=== PATIENT | male | born 1960 | race African-American/Black ===

== ENCOUNTER 2019-05-17 12:47 | Emergency (ER) | payer OTHER, MEDICAID, SELFPAY ==
[2019-05-17 12:48] VITALS: BP 174/103; PULSE 106; RESP 16; TEMP 36.6; O2SAT 98; BMI 29.5
--- NOTE | 2019-05-17 13:00 | RAD_ITS ---
STUDY: X-RAY - RIGHT KNEE REASON FOR EXAM: Male, 59 years old. TECHNIQUE: 4 view(s) of the knee. COMPARISON: None. FINDINGS: Normal visualized distal femur. Normal visualized proximal tibia and fibula. Normal proximal tibiofibular articulation. Normal medial femorotibial compartment. Normal lateral femorotibial compartment. There is mild lateral subluxation of the patella. The soft tissue structures are unremarkable. There is mild effusion. RAD/Knee 4 or More Views IMPRESSION: Mild joint effusion with minimal lateral subluxation of the patella please correlate to findings clinically. Electronically Signed: Jose L Greer, at 13:47 EST Tel , Service support ,
--- NOTE | 2019-05-17 13:01 | ED.VIS.GEN ---
History of Present Illness Chief Complaint: Lower Extremity Injury Informant: Patient Onset: Today Context: Onset with activity, Sudden Onset Timing: Continuous Quality: Pain Location: Right knee Current Severity: Mild Maximum Severity: Moderate Worsened by: Weightbearing Relieved by: Rest Associated Symptoms: No other symptoms Narrative: Patient is a 59-year-old male presents with a work-related injury that occurred this morning. He states he was pushing and pulling and heavy piece of machinery. He developed severe right knee pain. He denies history of prior injury. He denies history of gout or pseudogout. He denies fever or chills. He denies paresthesia, anesthesia or motor weakness. There is no history of direct trauma to his knowledge. States the pain is gotten worse and recently presents Prior similar symptoms: No Recent Illness/Hospitalization: No - Past Medical History (1) History of hypertension Status: Acute (2) History of type 2 diabetes mellitus Status: Acute (3) History of COPD Status: Chronic Past Medical History - Allergies and Home Meds Allergies/Adverse Reactions: Allergies No Known Allergies Allergy (Verified 05/17/19 12:48) Primary Care Physician: Care Physician,No Primary [Primary Care Provider] - Prior records reviewed: Yes Surgical History: noncontributory, - - Surgery left knee Lives: Alone Smoking Status: Never smoker Drugs: None Review of Systems General: Denies: Chills, Fever, Sweats Musculoskeletal: Reports: Swelling, Extremity Pain. Denies: Myalgias, Arthralgias, Neck pain, Back pain Skin: Denies: Rash, Wounds Neurological: Denies: Weakness, Parasthesia, Numbness Hematologic: Denies: Easy bleeding Allergy: Denies: Uticaria, Swelling of the mouth Physical Exam Vital Signs/Narrative: Vital Signs Temp Pulse Resp BP Pulse Ox 05/17/19 12:48 97.9 F 106 H 16 174/103 H 98 Inital Vital Signs reviewed: Yes General: Well nourished, Well developed, No Acute Distress Head: Normocephalic, Atraumatic Eyes: Perrl, EOMI. Negative for: Pale conjunctiva, Scleral icterus ENT: Moist mucous membranes, No rhinorrhea Neck: Supple, Nontender, No lymphadenopathy, No JVD Cardiovascular: Regular rate, Regular rhythm, No murmurs Extremities: No edema, Tenderness - Tenderness palpation of the right knee., - - The right knee is swollen compared to left. There is an effusion. The patella is not ballotable. There is joint line tenderness. He is able to extend to 180 degrees and flex to approximately 90 degrees. There is no laxity with varus valgus stress testing. There is no laxity with Flor's test. He complained of pain with modified Erika's test however there is no click. Skin: Normal color, No rash. Negative for: Cyanosis, Diaphoresis, Jaundice, No Trauma Neurological: Alert, Oriented x3, Cranial nerves II-XII grossly intact, Normal Strength, Normal Sensation. Negative for: Normal Gait Psychological: Normal affect Diagnostic/Tx/Re-eval Chest X-Ray - ED: Read by ED Physician, - - Review x-ray of the right knee was obtained and interpreted by me as negative for acute process. There is minimal arthritic changes noted of the right patella. There is slight asymmetry of the joint. There is no fracture. There is no subcutaneous air noted. Suspect patient has a meniscal injury. 05/17/19 13:00 Knee 4 or More Views [RAD] Stat - Medical Decision Making X-rays were obtained since patient has traumatic effusion to evaluate for fracture versus ligamentous/meniscus injury. Patient states he needs an orthopedic referral. He was referred to Dr. Patten. Plan is crutches, weight-bear as tolerated and opiate analgesia since he has history of hypertension and type 2 diabetes. ED Disposition - Plan for ED Patient: Disposition: Home or Assisted Living Diagnosis: Effusion of right knee Instructions: KNEE PAIN, Meniscus Injury (Possible) Prescriptions: Hydrocodone Bitart/Apap 5-325 [[place] 5MG-325MG] 1 tab PO Q6H PRN PRN 3 Days #10 tab PRN Reason: Pain Prescription Printed Referrals: Care Physician,No Primary [Primary Care Provider] - Tera Patten DO [STAFF PHYSICIAN] - 5-7 Days Additional Instructions: 1. Weight-bear as tolerated 2. Ice 20 to 30 minutes per application 6-8 times a day
[2019-05-17 13:05] VITALS: BP 156/96; PULSE 96; RESP 16; O2SAT 97
[2019-05-17 14:20] VITALS: BP 174/95; PULSE 87; RESP 16; O2SAT 100
== END 2019-05-17 14:34 | disposition home or self-care (01) ==
LOC: ED 13:41
PROVIDERS: Emergency Provider Emergency Medicine
DX: M25.461 Effusion, right knee (principal); I10 Essential (primary) hypertension; E11.9 Type 2 diabetes mellitus without complications; J44.9 Chronic obstructive pulmonary disease, unspecified
CPT/HCPCS: 73564; 99283

== ENCOUNTER → 2019-05-24 16:48 | Outpatient (CLI) | payer MEDICAID, SELFPAY ==
[2019-05-24 08:31] VITALS: BMI 29.5
[2019-05-24 17:20] LABS: BUN 15 mg/dL (7-18); Creatinine, Serum 1.39 mg/dL (0.70-1.30); EST Glomerular Filtration Rate 56 mL/min (>60); Est Glom Filt Rate - Afr Amer 68 mL/min (>60)
== END ==
PROVIDERS: Referring Provider Orthopaedic Surgery; Visit Provider Orthopaedic Surgery
DX: Z51.81 Encounter for therapeutic drug level monitoring (principal)
CPT/HCPCS: 36415; 82565; 84520